=== PATIENT | female | born 1960 | race Caucasian/White ===

== ENCOUNTER 2017-05-05 10:44 | Emergency (ER) | payer OTHER ==
[~2017-05-05] VITALS: Ht 167.6 cm; Wt 101.0 kg
[2017-05-05 10:51] VITALS: BP 154/95; PULSE 104; RESP 16; TEMP 97.9; O2SAT 98
[2017-05-05] MEDS ORDERED: HYDR25TA5 PO (11:06)
[2017-05-05] MEDS ORDERED: PANT40TA3 PO (11:06)
[2017-05-05] MEDS ORDERED: LISI10TA3 PO (11:06)
[2017-05-05] MEDS ORDERED: CETI10 PO (11:06)
[2017-05-05] MEDS ORDERED: PROZ40CA PO (11:06)
[2017-05-05] MEDS ORDERED: METF500T PO (11:06)
[2017-05-05] MEDS ORDERED: CYCL10TA PO (11:06)
[2017-05-05] MEDS ORDERED: ATOR40TA16 PO (11:06)
[2017-05-05] MEDS ORDERED: PRED20 PO (11:29)
[2017-05-05] MEDS ORDERED: ROBA750T PO (11:29)
[2017-05-05] MEDS ORDERED: KETOROLAC TROMETHAMINE 60 MG/2 ML (IM) VIAL IM ONE (11:30)
[2017-05-05] MEDS ORDERED: ORPHENADRINE INJ 60 MG/2 ML AMP IM ONE (11:30)
--- NOTE | 2017-05-05 11:36 | PD ---
HPI Chief Complaint: Pain: Acute or Chronic Time Seen by Provider: 11:19 Travel History International Travel<30 days: No Contact w/Intl Traveler<30days: No Traveled to known affect area: No History of Present Illness HPI 57-year-old female with left low back pain radiating down into the buttocks. Symptoms have been present for several weeks. Worse over the last few days prompting today's visit. Patient has known history of sciatica. Denies recent injury or trauma. Recently had an MRI which showed mild bulging disc in L4-L5. She denies fever, incontinence, saddle anesthesia, paresthesia or weakness of the extremities. Symptoms are worse with movement and slightly relieved with rest. Patient is currently on Naprosyn and Flexeril with very minimal symptom relief. PFSH Past Medical History Hx Anticoagulant Therapy: No Depression: Yes Cardiovascular Problems: Yes (HTN, CHOL) High Cholesterol: Yes Diabetes: Yes (TYPE 2 ) Patient Takes Glucophage: Yes (0930 05-05-17) Diminished Hearing: No GERD: Yes Hypertension: Yes Musculoskeletal: Yes (back problems) Tetanus Vaccination: Unknown Influenza Vaccination: Yes ?: Not Menopausal: Yes Social History Alcohol Use: Yes (occ) Tobacco Use: No Substance Use: No Allergies-Medications (Allergen,Severity, Reaction): Coded Allergies: tetracycline (Verified Allergy, Severe, 05/05/17) Reported Meds & Prescriptions Reported Meds & Active Scripts Active Reported Cetirizine (Cetirizine HCl) 10 Mg Tab 10 Mg PO DAILY Pantoprazole (Pantoprazole Sodium) 40 Mg Tab 40 Mg PO DAILY Metformin (Metformin HCl) 500 Mg Tab 500 Mg PO BIDPC Lisinopril 10 Mg Tab 10 Mg PO DAILY Hydrochlorothiazide 25 Mg Tab 25 Mg PO DAILY Prozac (Fluoxetine HCl) 40 Mg Cap 40 Mg PO DAILY Flexeril (Cyclobenzaprine HCl) 10 Mg Tab 10 Mg PO TID Atorvastatin (Atorvastatin Calcium) 40 Mg Tab 40 Mg PO HS Review of Systems Except as stated in HPI: all other systems reviewed are Neg Physical Exam Narrative GENERAL: Alert well-appearing female lying comfortably on stretcher. SKIN: Warm and dry. HEAD: Normocephalic. EYES: No scleral icterus. No injection or drainage. CARDIOVASCULAR: Regular rate and rhythm without murmurs, gallops, or rubs. RESPIRATORY: Breath sounds equal bilaterally. No accessory muscle use. GASTROINTESTINAL: Abdomen soft, non-tender, nondistended. MUSCULOSKELETAL: No cyanosis, or edema. Normal strength and sensation in lower extremities. Dorsiflex and plantarflex intact. 2+ dorsal pedis pulse. BACK: Generalized pain/tenderness to the lumbar region and left buttocks. No point tenderness over the spine. Without obvious deformity. No CVA tenderness. Data Data Last Documented VS Vital Signs Date Time Temp Pulse Resp B/P (MAP) Pulse Ox O2 Delivery O2 Flow Rate FiO2 05/05/17 10:51 97.9 104 16 154/95 (114) 98 Orders Orders Ketorolac Inj (Toradol Inj) (05/05/17 11:30) Orphenadrine Inj (Norflex Inj) (05/05/17 11:30) Ed Discharge Order (05/05/17 11:25) [facility] Medical Decision Making Medical Screen Exam Complete: Yes Emergency Medical Condition: Yes Differential Diagnosis Sciatica, herniated disc, lumbar strain Narrative Course 57-year-old female with left low back pain radiating down into the buttocks. Patient has known history of sciatica. Recently had an MRI which showed mild bulging disc in L4-L5. She has a normal neurologic exam. She is well- appearing. She was instructed to discontinue her Flexeril and start Robaxin and prednisone. Follow-up with her PCP. Diagnosis Primary Impression: Sciatica Qualified Codes: M54.32 - Sciatica, left side Referrals: Primary Care Physician Additional Instructions: Take the medications as prescribed. Avoid heavy lifting or strenuous activity. Follow-up with her primary doctor. Return if he developed new or worsening symptoms. Scripts Prednisone (Prednisone) 20 Mg Tab 40 MG PO DAILY, #10 TAB 0 Refills Take 40 mg (2 tablets) daily for 5 days Prov: Georgia Saini 05/05/17 Methocarbamol (Robaxin) 750 Mg Tab 750 MG PO TID for Muscle Spasm, #15 TAB 0 Refills Prov: Georgia Saini 05/05/17 Disposition: 01 DISCHARGE HOME Condition: Stable Georgia Saini May 05, 2017 11:36
== END 2017-05-05 11:44 | disposition home or self-care (01) ==
LOC: PHEFT 10:44
DX: M54.42 Lumbago with sciatica, left side (principal)
CPT/HCPCS: 96372; 99284; J1885; J2360

== ENCOUNTER 2017-09-05 23:10 | Emergency (ER) | payer OTHER ==
[~2017-09-05] VITALS: Ht 167.6 cm; Wt 101.9 kg
[~2017-09-05 23:10] MED LIST: ATOR40TA16 PO; CETI10 PO; CYCL10TA PO; HYDR25TA5 PO; LISI10TA3 PO; METF500T PO; PANT40TA3 PO; PRED20 PO; PROZ40CA PO; ROBA750T PO
[2017-09-05 23:14] VITALS: BP 138/74; PULSE 85; RESP 18; TEMP 98.2; O2SAT 93
[2017-09-05] MEDS ORDERED: DEXAMETHASONE SOD PHOS 4 MG/ML VIAL IM ONE (23:45)
[2017-09-05] MEDS ORDERED: ORPHENADRINE INJ 60 MG/2 ML AMP IM ONE (23:45)
[2017-09-06] MEDS ORDERED: CYCL10TA PO
[2017-09-06] MEDS ORDERED: NORC5TAB PO
--- NOTE | 2017-09-06 | PD ---
HPI Chief Complaint: Pain: Acute or Chronic Time Seen by Provider: 23:30 Travel History International Travel<30 days: No Contact w/Intl Traveler<30days: No Traveled to known affect area: No History of Present Illness HPI The patient is a 57-year-old female who presents to the emergency department for left gluteal pain that radiates down the left leg. The patient has a history of a herniated disc in the lumbar region via MRI, cannot recall the exact level. The patient is followed by her pain interventionalists physician in [place], [place], Dr. Muniz. The patient has had 2 previous injections into the lumbar region for her back pain. However, she started new stretching exercises last Tuesday, developed pain on . However, this pain is not located in the low back, but is located over the left gluteal area. The pain radiates down the posterior aspect of the left leg to the left heel. She does have some numbness and tingling but this is chronic from her previous herniated disc. The patient is already on Celebrex and Neurontin for her pain. She denies any weakness of the left lower extremity. She denies any urinary incontinence. Symptoms are moderate. The patient is followed by her primary physician, Dr. Cody Schumacher. PFSH Past Medical History Hx Anticoagulant Therapy: No Depression: Yes Cardiovascular Problems: Yes (HTN, CHOL) High Cholesterol: Yes Diabetes: Yes (TYPE 2 ) Diminished Hearing: No GERD: Yes Hypertension: Yes Musculoskeletal: Yes (back problems) Menopausal: Yes Social History Alcohol Use: Yes (occ) Tobacco Use: No Substance Use: No Allergies-Medications (Allergen,Severity, Reaction): Coded Allergies: tetracycline (Verified Allergy, Severe, 05/05/17) Reported Meds & Prescriptions Reported Meds & Active Scripts Active Prednisone 20 Mg Tab 40 Mg PO DAILY Take 40 mg (2 tablets) daily for 5 days Robaxin (Methocarbamol) 750 Mg Tab 750 Mg PO TID Reported Cetirizine (Cetirizine HCl) 10 Mg Tab 10 Mg PO DAILY Pantoprazole (Pantoprazole Sodium) 40 Mg Tab 40 Mg PO DAILY Metformin (Metformin HCl) 500 Mg Tab 500 Mg PO BIDPC Lisinopril 10 Mg Tab 10 Mg PO DAILY Hydrochlorothiazide 25 Mg Tab 25 Mg PO DAILY Prozac (Fluoxetine HCl) 40 Mg Cap 40 Mg PO DAILY Flexeril (Cyclobenzaprine HCl) 10 Mg Tab 10 Mg PO TID Atorvastatin (Atorvastatin Calcium) 40 Mg Tab 40 Mg PO HS Review of Systems Except as stated in HPI: all other systems reviewed are Neg Gastrointestinal: No: Nausea Genitourinary: No: Dysuria, Incontinence Musculoskeletal: Positive: Pain, No: Limited ROM Skin: No Rash Neurologic: Positive: Paresthesia, Sensory Disturbance, No: Weakness Physical Exam Narrative GENERAL: Awake, alert, pleasant 57-year-old female who appears her stated age and is in no acute respiratory distress. SKIN: Focused skin assessment warm/dry. HEAD: Atraumatic. Normocephalic. EYES: No injection or drainage. Back: No tenderness over the midline of the lumbar thoracic region. No tenderness over the paravertebral muscles or sacroiliac. MUSCULOSKELETAL: Mild tenderness of the left lateral gluteal. Negative straight leg on the left. Flexion of the left great toe, plantar flexion, dorsiflexion, extension left knee, flexion left hip, abduction, and abduction are 5 out of 5 and symmetric. Positive distal pulses. Sensation was intact on the lower extremities bilaterally. NEUROLOGICAL: Awake and alert. No obvious cranial nerve deficits. Motor grossly within normal limits. Normal speech. PSYCHIATRIC: Appropriate mood and affect; insight and judgment normal. Data Data Last Documented VS Vital Signs Date Time Temp Pulse Resp B/P (MAP) Pulse Ox O2 Delivery O2 Flow Rate FiO2 09/05/17 23:14 98.2 85 18 138/74 (95) 93 Orders Orders Dexamethasone Inj (Decadron Inj) (09/05/17 23:45) Orphenadrine Inj (Norflex Inj) (09/05/17 23:45) [facility] Medical Decision Making Medical Screen Exam Complete: Yes Emergency Medical Condition: Yes Medical Record Reviewed: Yes Differential Diagnosis Differential diagnosis includes sciatica, back pain with radiculopathy, herniated disc, spinal stenosis, piriform syndrome, musculoskeletal pain. Narrative Course The patient appears to have sciatica with pain that starts in the left gluteal area and radiates down the left leg. There is no weakness. She is Emil on Celebrex. The patient was administered a IM injection of Decadron and Norflex, will be discharged home on Flexeril and Stanley at night as needed for 5 days. She is advised to follow-up with her pain interventionalists. Diagnosis Primary Impression: Sciatica Qualified Codes: M54.32 - Sciatica, left side Patient Instructions: General Instructions Additional Instructions: Continue Celebrex. Flexeril and Stanley as needed. Follow-up with your pain interventionalists. Return if symptoms worsen or progress. Med/Other Pt SpecificInfo: Prescription(s) given Scripts Hydrocodone-Acetaminophen (Stanley) 5 Mg-325 Mg Tab 1 TAB PO Q6H Y for PAIN, #10 TAB 0 Refills Prov: Ernesto Escudero MD 09/06/17 Cyclobenzaprine (Flexeril) 10 Mg Tab 10 MG PO TID for Muscle Spasm for 5 Days, #15 TAB 0 Refills Prov: Ernesto Escudero MD 09/06/17 Disposition: 01 DISCHARGE HOME Condition: Stable Ernesto Escudero MD Sep 06, 2017 00:00
[2017-09-06] MEDS ORDERED: ACETAMINOPHEN/HYDROcodone 325 MG/5 MG TAB PO ONE (00:15)
[2017-09-06] MEDS ORDERED: GABA300C5 PO (00:27)
[2017-09-06] MEDS ORDERED: CELE100C PO (00:40)
== END 2017-09-06 00:43 | disposition home or self-care (01) ==
LOC: PHED 23:10
DX: M54.32 Sciatica, left side (principal); E11.9 Type 2 diabetes mellitus without complications; E78.00 Pure hypercholesterolemia, unspecified; F32.9 Major depressive disorder, single episode, unspecified; I10 Essential (primary) hypertension; K21.9 Gastro-esophageal reflux disease without esophagitis
CPT/HCPCS: 96372; 99283; J1100; J2360